=== PATIENT | female | born 1955 | race Hispanic/Latino ===

== ENCOUNTER 2019-08-14 07:20 | Day surgery (SDC) | payer OTHER ==
[~2019-08-14] VITALS: Ht 165.1 cm; Wt 97.5 kg
[2019-08-14] MEDS ORDERED: SODIUM CHLORIDE 0.9% 1000ML 1,000 ML IV ONE (07:22)
[2019-08-14 08:31] VITALS: BP 147/57
[2019-08-14] MEDS ORDERED: INSU100V12 SQ (08:43)
[2019-08-14] MEDS ORDERED: OZEMPIC SQ (08:43)
[2019-08-14] MEDS ORDERED: PROPOFOL 10 MG/ML 20ML VIAL IV ONE (11:11)
[2019-08-14 11:21] VITALS: BP 122/62
[2019-08-14 11:25] VITALS: BP 125/64
[2019-08-14 11:30] VITALS: BP 132/62
[2019-08-14 11:40] VITALS: BP 139/61
[2019-08-14 11:51] VITALS: BP 138/70
== END 2019-08-14 12:05 | disposition home or self-care (01) ==
LOC: ENDO 07:20 → DAH 07:20 → ENDO 12:05
PROVIDERS: ATTEND Surgery
DX: K21.9 Gastro-esophageal reflux disease without esophagitis (principal); K29.70 Gastritis, unspecified, without bleeding; E78.5 Hyperlipidemia, unspecified; E11.9 Type 2 diabetes mellitus without complications; E78.00 Pure hypercholesterolemia, unspecified; E66.01 Morbid (severe) obesity due to excess calories; Z90.710 Acquired absence of both cervix and uterus; Z79.899 Other long term (current) drug therapy; Z68.38 Body mass index [BMI] 38.0-38.9, adult
CPT/HCPCS: 43235; 82948 ×2; A4215; A4221; A4222; A4223; A4606; A4620; A4663; J2704; J7030

== ENCOUNTER → 2019-12-28 | Outpatient (CLI) | payer OTHER ==
[~2019-12-28] MED LIST: INSU100V12 SQ; OZEMPIC SQ; REGADENOSON 0.4 MG/5 ML PF SYG IVP SCH
== END | disposition home or self-care (01) ==
LOC: SHCH 07:37
PROVIDERS: ATTEND Internal Medicine Cardiovascular Disease
DX: R07.9 Chest pain, unspecified (principal); R06.00 Dyspnea, unspecified; R51 Headache; E11.9 Type 2 diabetes mellitus without complications; I10 Essential (primary) hypertension; E78.5 Hyperlipidemia, unspecified
CPT/HCPCS: 78452; 93017; A9500 ×2; J2785; 96374

== ENCOUNTER 2021-07-08 14:33 | Emergency (ER) | payer OTHER ==
[~2021-07-08] VITALS: Ht 165.1 cm; Wt 80.7 kg
[~2021-07-08 14:33] MED LIST changes: -REGADENOSON 0.4 MG/5 ML PF SYG IVP SCH
[2021-07-08 17:59] VITALS: BP 132/66
== END 2021-07-08 18:16 | disposition home or self-care (01) ==
LOC: EDH 14:33
DX: H61.23 Impacted cerumen, bilateral (principal); I10 Essential (primary) hypertension; E78.00 Pure hypercholesterolemia, unspecified
CPT/HCPCS: 69209; 99282